=== PATIENT | female | born 2000 | race Two or more races ===

== ENCOUNTER 2019-05-15 21:34 | Emergency (ER) | payer SELFPAY ==
[~2019-05-15] VITALS: Ht 160 cm; Wt 59.0 kg
[2019-05-15] MEDS ORDERED: fentaNYL PF VIAL 100 MCG/2 ML VIAL IV ONE (21:45)
[2019-05-15] MEDS ORDERED: IV NORMAL SALINE 1000ML BAG 1,000 ML IV ONE (21:45)
--- NOTE | 2019-05-15 21:53 | PHYS DOC ---
Adult General Chief Complaint Chief Complaint: ABDOMINAL PAIN HPI HPI 19 y/o female presents to ER for c/o dysuria. Pt is in moderate distress and speaks [place] making communication difficult. RN at bedside and is able to assist with communication. Pt's states pt tamir started having pain w/urination with blood in her urine. He denies any sexual intercourse. Pt denies any trauma. LMP 04/28/19. Pt denies smoking, alcohol or illicit drug use. Review of Systems Review of Systems Constitutional: Denies fever or chills Respiratory: Denies cough or shortness of breath [] Cardiovascular: No additional information not addressed in HPI [] GI: Denies abdominal pain, nausea, vomiting, bloody stools or diarrhea [] : Reports dysuria/hematuria- denies vaginal sxs Musculoskeletal: Denies back pain or joint pain [] Integument: Denies rash or skin lesions [] Neurologic: Denies headache, focal weakness or sensory changes [] All other systems were reviewed and found to be within normal limits, except as documented in this note. Current Medications Current Medications Current Medications Medications (Trade) Dose Ordered Sig/Rose Mary Start Time Stop Time Status Last Admin Dose Admin Ceftriaxone Sodium (Rocephin) 1 gm 1X ONCE 05/15/19 23:00 05/15/19 23:01 DC 05/15/19 22:53 1 GM Fentanyl Citrate (Fentanyl 2ml Vial) 50 mcg 1X ONCE 05/15/19 21:45 05/15/19 21:53 DC 05/15/19 21:49 50 MCG Ketorolac Tromethamine (Toradol 15mg Vial) 15 mg 1X ONCE 05/15/19 23:00 05/15/19 23:01 DC 05/15/19 22:52 15 MG Lorazepam (Ativan Inj) 0.5 mg 1X ONCE 05/15/19 22:30 05/15/19 22:31 DC 05/15/19 22:12 0.5 MG Morphine Sulfate (Morphine Sulfate) 4 mg 1X ONCE 05/15/19 23:30 05/15/19 23:31 DC Sodium Chloride 1,000 ml @ 1,000 mls/hr 1X ONCE 05/15/19 21:45 05/15/19 22:44 DC 05/15/19 21:49 1,000 MLS/HR Allergies Allergies Allergies Coded Allergies Type Severity Reaction Last Updated Verified No Known Drug Allergies 05/15/19 No Physical Exam Physical Exam Constitutional: Well developed, well nourished, moderate distress on arrival to [facility]- pt anxious/tearful, non-toxic appearance. [] HENT: Normocephalic, atraumatic, oropharynx moist, nose normal. [] Eyes: Pupils equal, conjunctiva normal, no discharge. [] Neck: Normal range of motion, supple, no stridor. [] Cardiovascular: Heart rate regular rhythm, no murmur [] Lungs & Thorax: Bilateral breath sounds clear to auscultation- hyperventilating on arrival to room. [] Abdomen: Bowel sounds normal, soft- no distention/rigidity, no tenderness, no masses, no pulsatile masses. [] RN at bedside during evaluation of genitals as pt is holding her vagina during exam- no bleeding/discharge at vagina/urethra. No rash/lesions/swelling/obvious trauma. RN asked where her pain was and pt pointed to her urethra Skin: Warm, dry, no erythema, no rash. [] Back: No tenderness, no CVA tenderness. [] Extremities: No tenderness, no cyanosis, no clubbing, ROM intact, no edema. [] Neurologic: Alert and oriented X 3, normal motor function, normal sensory function, no focal deficits noted. [] Psychologic: Affect normal, judgement normal, mood anxious Current Patient Data Vital Signs Vital Signs Date Time Temp Pulse Resp B/P (MAP) Pulse Ox O2 Delivery O2 Flow Rate FiO2 05/15/19 21:49 26 97 Room Air 05/15/19 21:37 98.3 125 143/75 (97) 98.3 Lab Values Laboratory Tests Test 05/15/19 21:45 05/15/19 21:53 White Blood Count 10.4 x10^3/uL (4.0-11.0) Red Blood Count 5.03 x10^6/uL (3.50-5.40) Hemoglobin 14.0 g/dL (12.0-15.5) Hematocrit 39.9 % (36.0-47.0) Mean Corpuscular Volume 79 fL (79-100) Mean Corpuscular Hemoglobin 28 pg (25-35) Mean Corpuscular Hemoglobin Concent 35 g/dL (31-37) Red Cell Distribution Width 13.6 % (11.5-14.5) Platelet Count 361 x10^3/uL (140-400) Neutrophils (%) (Auto) 65 % (31-73) Lymphocytes (%) (Auto) 26 % (24-48) Monocytes (%) (Auto) 6 % (0-9) Eosinophils (%) (Auto) 2 % (0-3) Basophils (%) (Auto) 0 % (0-3) Neutrophils # (Auto) 6.8 x10^3uL (1.8-7.7) Lymphocytes # (Auto) 2.7 x10^3/uL (1.0-4.8) Monocytes # (Auto) 0.7 x10^3/uL (0.0-1.1) Eosinophils # (Auto) 0.3 x10^3/uL (0.0-0.7) Basophils # (Auto) 0.0 x10^3/uL (0.0-0.2) Urine Collection Type U cath Urine Color Yellow Urine Clarity Clear Urine pH 6.0 Urine Specific [place] <=1.005 Urine Protein Negative mg/dL (NEG-TRACE) Urine Glucose (UA) Negative mg/dL (NEG) Urine Ketones (Stick) Negative mg/dL (NEG) Urine Blood Negative (NEG) Urine Nitrite Negative (NEG) Urine Bilirubin Negative (NEG) Urine Urobilinogen Dipstick 0.2 mg/dL (0.2 mg/dL) Urine Leukocyte Esterase Large (NEG) Urine RBC 0 /HPF (0-2) Urine WBC 11-20 /HPF (0-4) Urine Squamous Epithelial Cells Few /LPF Urine Bacteria 0 /HPF (0-FEW) Sodium Level 141 mmol/L (136-145) Potassium Level 3.5 mmol/L (3.5-5.1) Chloride Level 105 mmol/L (98-107) Carbon Dioxide Level 23 mmol/L (21-32) Anion Gap 13 (6-14) Blood Urea Nitrogen 6 mg/dL (7-20) L Creatinine 0.7 mg/dL (0.6-1.0) Estimated GFR (Cockcroft-Gault) 105.6 BUN/Creatinine Ratio 9 (6-20) Glucose Level 103 mg/dL (70-99) H Calcium Level 9.3 mg/dL (8.5-10.1) Total Bilirubin 0.3 mg/dL (0.2-1.0) Aspartate Amino Transferase (AST) 16 U/L (15-37) Alanine Aminotransferase (ALT) 35 U/L (14-59) Alkaline Phosphatase 95 U/L (46-116) Total Protein 7.9 g/dL (6.4-8.2) Albumin 4.0 g/dL (3.4-5.0) Albumin/Globulin Ratio 1.0 (1.0-1.7) Urine Opiates Screen Neg (NEG) Urine Methadone Screen Neg (NEG) Urine Barbiturates Neg (NEG) Urine Phencyclidine Screen Neg (NEG) Urine Amphetamine/Methamphetamine Neg (NEG) Urine Benzodiazepines Screen Neg (NEG) Urine Cocaine Screen Neg (NEG) Urine Cannabinoids Screen Neg (NEG) Ethyl Alcohol Level < 10 mg/dL (0-10) Urine Ethyl Alcohol Neg (NEG) POC Urine HCG, Qualitative Hcg negative (Negative) Laboratory Tests 05/15/19 21:45 Laboratory Tests 05/15/19 21:45 EKG EKG [] Radiology/Procedures Radiology/Procedures PROCEDURE: CT ABDOMEN PELVIS WO CONTRAST CT abdomen and pelvis without contrast. HISTORY: Dysuria, hematuria CT scan of the abdomen and pelvis was done without contrast. Lung bases are clear. There is no effusion. Liver is normal in appearance. Is no calcified gallstone. Spleen and adrenal glands are normal. Pancreas is unremarkable. There is no mass or hydronephrosis or intrarenal calculus in the left kidney. There is mild dilatation the right renal collecting system. A ureteral calculus is not identified. Bladder is distended. Uterus and ovaries are normal. Appendix is normal. There is no bowel obstruction. There is moderate stool in the colon. There is mild wall thickening of the transverse colon. There are possible large diverticula near the hepatic flexure the colon and transverse colon. There is mild colon wall thickening in that location. IMPRESSION: 1. Mild dilatation the renal collecting system but distended bladder. 2. No renal or ureteral calculus noted. 3. No bowel obstruction. 4. Mild thickening of wall the transverse colon nonspecific, large colon diverticula at the proximal transverse colon and hepatic flexure. Electronically signed by: Mario May MD (05/15/2019 11:40 PM) [facility] DICTATED and SIGNED BY: MARIO MAY MD DATE: 05/15/19 2089 Course & Med Decision Making Course & Med Decision Making Pertinent Labs and Imaging studies reviewed. (See chart for details) Translation was used with family out of her room to verify patient's information without family presents. Patient denies any vaginal trauma, and safe living environment, or recent sexual intercourse. Patient reports male with her is her and she has to children age 6 and 2 with him. 0030: Patient was evaluated in the ER for complaints of sudden onset of urethral pain 2 hours prior to arrival to ER. Patient was provided with IV fluids and pain/variety medication and she has had much improvement in symptoms. RN at bedside to translate discussion on test/CT results. Pt is smiling and in no distress. When discussing CT results of diverticula patient reports she has history of this. Discussed plans for Flagyl and Cipro antibiotics for treatment for bowel wall thickening/UTI. She advised on increasing her fluids. Patient advised need on follow-up with GI doctor and primary care physician. Will provide patient with community clinic and physician referral information with discharge paperwork.Education provided on signs and symptoms to return to ER. Discharge instructions were discussed. Patient to follow-up with primary care physician if symptoms persist or with any concerns. Pt's case and plan of care was discussed with Dr. Patel. Lee Disclaimer Lee Disclaimer This electronic medical record was generated, in whole or in part, using a voice recognition dictation system. Departure Departure Impression: Primary Impression: Diverticula of intestine Additional Impressions: Urinary tract infection Constipation Disposition: 01 HOME, SELF-CARE Condition: STABLE Referrals: UNKNOWN PCP NAME (PCP) JILLIAN CARLTON MD Patient Instructions: Constipation, Adult, Diverticulosis, Urinary Tract Infection Additional Instructions: Drink plenty of water daily. Tylenol and/or ibuprofen as needed for pain as directed on container. If pain is intolerable you are being provided with prescription for [place] tablets. Avoid extra Tylenol if taking the prescribed [place]. If taking this medication you should take [id number] stool softeners such as MiraLAX. It is important for you to call as soon as possible and schedule an appointment with a primary care physician and gastrointestinal doctor for reevaluation and further care. Scripts Hydrocodone/Apap 5-325 (NORCO 5-325 TABLET) 1 Each Tablet 1 TAB PO PRN Q6HRS PRN for PAIN, #8 TAB 0 Refills No driving or drinking alcohol while taking this medication Prov: THIAGO NICHOLE APRN 05/16/19 Metronidazole (FLAGYL) 500 Mg Tablet 1 TAB PO BID, #14 TAB 0 Refills Prov: THIAGO NICHOLE APRN 05/16/19 Ciprofloxacin Hcl (CIPRO) 500 Mg Tablet 1 TAB PO BID, #14 TAB 0 Refills Prov: THIAGO NICHOLE APRN 05/16/19 Problem Qualifiers THIAGO NICHOLE APRN May 15, 2019 21:53
[2019-05-15 21:58] LABS: BASO % 0 % (0-3); EOS # 0.3 x10^3/uL (0.0-0.7); EOS % 2 % (0-3); HEMATOCRIT 39.9 % (36.0-47.0); LYMPH # 2.7 x10^3/uL (1.0-4.8); LYMPH % 26 % (24-48); MEAN CORPUSCULAR HEMOGLOBIN 28 pg (25-35); MEAN CORPUSCULAR HGB CONC 35 g/dL (31-37); MEAN CORPUSCULAR VOLUME 79 fL (79-100); MONO # 0.7 x10^3/uL (0.0-1.1); MONO % 6 % (0-9); NEUT # 6.8 x10^3uL (1.8-7.7); NEUT % 65 % (31-73); PLATELET COUNT 361 x10^3/uL (140-400); RED BLOOD COUNT 5.03 x10^6/uL (3.50-5.40); RED CELL DISTRIBUTION WIDTH 13.6 % (11.5-14.5); WHITE BLOOD COUNT 10.4 x10^3/uL (4.0-11.0)
[2019-05-15 21:59] LABS: BILIRUBIN,URINE NEGATIVE (NEG); CLARITY,URINE CLEAR; COLOR,URINE YELLOW; NITRITE,URINE NEGATIVE (NEG); PROTEIN,URINE NEGATIVE (NEG-TRACE); UROBILINOGEN,URINE 0.2 mg/dL (0.2 mg/dL)
[2019-05-15 22:05] LABS: SQUAMOUS EPITHELIAL CELL,UR FEW /LPF
[2019-05-15 22:06] LABS: BACTERIA,URINE 0 /HPF (0-FEW); RBC,URINE 0 /HPF (0-2)
[2019-05-15 22:07] LABS: AMPHETAMINE/METHAMPHETAMINE NEG (NEG); BARBITURATES NEG (NEG); BENZODIAZEPINES NEG (NEG); CANNABINOIDS NEG (NEG); COCAINE NEG (NEG); METHADONE NEG (NEG); OPIATES NEG (NEG); PHENCYCLIDINE NEG (NEG)
[2019-05-15 22:09] LABS: CALCIUM 9.3 mg/dL (8.5-10.1); CREATININE 0.7 mg/dL (0.6-1.0); GFR 105.6; POTASSIUM 3.5 mmol/L (3.5-5.1)
[2019-05-15 22:15] LABS: TOTAL BILIRUBIN 0.3 mg/dL (0.2-1.0); TOTAL PROTEIN 7.9 g/dL (6.4-8.2)
[2019-05-15] MEDS ORDERED: KETOROLAC 15 MG/ML VIAL. IV ONE (23:00)
[2019-05-15] MEDS ORDERED: cefTRIAXone IV Push 1 GM VIAL. IVP ONE (23:00)
[2019-05-15] MEDS ORDERED: MORPHINE SULFATE 4 MG/ML VIAL. IV ONE (23:30)
--- NOTE | 2019-05-15 23:43 | RAD ---
CT abdomen and pelvis without contrast. HISTORY: Dysuria, hematuria CT scan of the abdomen and pelvis was done without contrast. Lung bases are clear. There is no effusion. Liver is normal in appearance. Is no calcified gallstone. Spleen and adrenal glands are normal. Pancreas is unremarkable. There is no mass or hydronephrosis or intrarenal calculus in the left kidney. There is mild dilatation the right renal collecting system. A ureteral calculus is not identified. Bladder is distended. Uterus and ovaries are normal. Appendix is normal. There is no bowel obstruction. There is moderate stool in the colon. There is mild wall thickening of the transverse colon. There are possible large diverticula near the hepatic flexure the colon and transverse colon. There is mild colon wall thickening in that location. IMPRESSION: 1. Mild dilatation the renal collecting system but distended bladder. 2. No renal or ureteral calculus noted. 3. No bowel obstruction. 4. Mild thickening of wall the transverse colon nonspecific, large colon diverticula at the proximal transverse colon and hepatic flexure. Electronically signed by: Mario May MD (05/15/2019 11:40 PM) [facility]
[2019-05-16] VITALS: BP 118/65
[2019-05-16] MEDS ORDERED: CIPR500T94 PO (00:46)
[2019-05-16] MEDS ORDERED: METR500T PO (00:46)
[2019-05-16] MEDS ORDERED: HYDR-3164 PO (00:46)
== END 2019-05-16 01:00 | disposition home or self-care (01) ==
LOC: ER 21:34
DX: N39.0 Urinary tract infection, site not specified (principal); K57.32 Diverticulitis of large intestine without perforation or abscess without bleeding; K59.00 Constipation, unspecified
CPT/HCPCS: 36415; 74176; 80053; 80307; 81001; 81025; 85025; 87086; 96374; 96375; 99285; G0480; J0696; J1885; J2060; J3010; J7030